=== PATIENT | female | born 1965 | race Hispanic/Latino ===

== ENCOUNTER 2023-05-13 23:16 | Emergency (ER) | payer OTHER ==
[~2023-05-13] VITALS: Ht 152.4 cm; Wt 74.4 kg
[2023-05-13 23:54] LABS: BASOPHILS # (AUTO) 0.06 K/uL (0.00-0.20); BASOPHILS % (AUTO) 0.6 % (0.0-5.0); EOSINOPHILS # (AUTO) 0.22 K/uL (0.00-0.70); EOSINOPHILS % (AUTO) 2.1 % (0.0-8.0); HEMATOCRIT 40.8 % (36-48); IMMATURE GRANULOCYTE ABSOLUTE 0.03 K/uL (0-1); LYMPHOCYTES # (AUTO) 3.1 K/uL (1.0-4.8); LYMPHOCYTES % (AUTO) 30.3 % (21.0-51.0); MEAN CORPUSCULAR HEMOGLOBIN 30.9 pg (27.0-33.0); MEAN CORPUSCULAR HGB CONC 33.8 g/dL (32.0-36.0); MEAN CORPUSCULAR VOLUME 91.3 fL (79-99); MONOCYTES # (AUTO) 0.8 K/uL (0.1-1.0); MONOCYTES % (AUTO) 7.3 % (3.0-13.0); NEUTROPHILS # (AUTO) 6.1 K/uL (1.8-7.7); NEUTROPHILS % (AUTO) 59.4 % (40.0-77.0); PLATELET COUNT (AUTO) 241 K/uL (130-400); RED BLOOD CELL COUNT(AUTO) 4.47 MIL/uL (4.00-5.50); RED CELL DISTRIBUTION WIDTH 12.5 % (11.0-15.5); WHITE BLOOD COUNT (AUTO) 10.3 K/uL (4.8-10.8)
[2023-05-14 00:09] LABS: CREATININE 0.6 mg/dL (0.5-1.0); POTASSIUM 4.3 mmol/L (3.5-5.1)
[2023-05-14 00:11] LABS: ALBUMIN 3.4 g/dL (3.5-5.0); BILIRUBIN,TOTAL 0.2 mg/dL (0.2-1.0); TOTAL PROTEIN, SERUM 7.3 g/dL (6.0-8.3)
[2023-05-14] MEDS ORDERED: FAMOTIDINE 20MG VIAL IV ONE (00:30)
[2023-05-14 00:36] VITALS: BP 132/74; PULSE 62; RESP 20; O2SAT 98
[2023-05-14] MEDS ORDERED: FAMO-136 PO (00:39)
[2023-05-14] MEDS: MAG/ALUM/SIMETH 30 ML UDCUP PO ONE (00:43)
[2023-05-14] MEDS: FAMOTIDINE 20MG TAB PO ONE (00:43)
[2023-05-14] MEDS: LIDOCAINE HCL 2% VISCOUS 15 ML UDCUP PO ONE (00:43)
[2023-05-14 00:46] LABS: APPEARANCE,URINE CLEAR (CLEAR); BILIRUBIN,URINE NEGATIVE (NEGATIVE); COLOR,URINE COLORLESS (YELLOW); GLUCOSE, URINE (UA) NEGATIVE (NEGATIVE); KETONES,URINE NEGATIVE (NEGATIVE); LEUKOCYTE ESTERASE ,URINE 75 Leu/uL (NEGATIVE); NITRATE,URINE NEGATIVE (NEGATIVE); OCCULT BLOOD,URINE NEGATIVE (NEGATIVE); PROTEIN,URINE NEGATIVE (NEGATIVE); UROBILINOGEN,URINE 0.2 mg/dL (0.2-1.0)
[2023-05-14 00:47] LABS: ADD UA MICROSCOPIC YES
[2023-05-14 00:48] LABS: BACTERIA,URINE FEW /HPF (None Seen); MUCUS,URINE RARE LPF (None Seen); SQUAMOUS EPITHELIAL CELL,UR FEW /HPF (0-2)
== END 2023-05-14 00:58 | disposition home or self-care (01) ==
LOC: EDH 23:16
DX: K21.9 Gastro-esophageal reflux disease without esophagitis (principal); I10 Essential (primary) hypertension; E03.9 Hypothyroidism, unspecified; E11.9 Type 2 diabetes mellitus without complications; E78.00 Pure hypercholesterolemia, unspecified; Z59.86 Financial insecurity; Z87.19 Personal history of other diseases of the digestive system; Z88.5 Allergy status to narcotic agent; Z79.899 Other long term (current) drug therapy
CPT/HCPCS: 36415; 80053; 81001; 83690; 85025; 87088

== ENCOUNTER 2024-09-02 00:17 | Emergency (ER) | payer SELFPAY ==
[~2024-09-02] VITALS: Ht 149.9 cm; Wt 71.7 kg
[~2024-09-02 00:17] MED LIST: FAMO-136 PO
--- NOTE | 2024-09-02 00:45 | NUR ---
PATIENT MOVED TO FAST TRACK AT THIS TIME./ELIZABETH
--- NOTE | 2024-09-02 00:58 | ERN ---
ED Note History of Present Illness Stated Complaint: EARACHES,SORE THROAT,M COUGH, CONGESTION X 2 WKS Chief Complaint: Multiple Complaints Time Seen by MD: 00:34 Dictation: This is a 59-year-old female who came in with her family members with complaints of 3 week history of sore throat cough and congestion. She stated that initially she took an antibiotic from her primary care she did not improve much. For heartburn she was given some medication which she also feels like it did not work she continues to have sore throat earache chest congestion and she also has a headache. All these are associated also with reflux. Temperature 97.7 pulse 67 respirations 20 blood pressure 172/82 with a pulse oximetry of 98% on room air Chronic medical problems include osteoarthritis, GERD, gastritis and hypercholesterolemia Allergies: Coded Allergies: morphine (Unverified Allergy, Unknown, 05/13/23) Home Meds Active Scripts Amoxicillin/Potassium Clav (Amox Tr-K Clv 875-125 mg Tab) 875 Mg-125 Mg Tablet, 1 EACH PO BID for 5 Days, #10 TAB 0 Refills Prov:ANGI HUSSEIN MD 09/02/24 Prednisone (Prednisone) 20 Mg Tablet, 1 TAB PO AD for 6 Days, #14 TAB 0 Refills TAKE 1 TAB BY MOUTH THREE TIMES PER DAY X3 DAYS, THEN TAKE 1 TAB BY MOUTH TWICE A DAY X2 DAYS, THEN TAKE 1 TAB BY MOUTH ONCE A DAY X1 DAY. Prov:ANGI HUSSEIN MD 09/02/24 Famotidine (Pepcid) 20 Mg Tablet, 20 MG PO BID for 14 Days, #28 TAB Prov:JERALD ESQUIVEL PAC 05/14/23 Past Medical History Past Medical History: Arthritis, High Cholesterol, Other Additional Past Medical Hx: HX OF ACID REFLUX, GASTRITIS Surgical History: Other, Surgical History Other: HEMORRHOID SX Family History: Negative Social History: Negative History: Not Applicable RN Note Reviewed/Agreed w/PFSH: Yes Review of System Dictation Constitutional: Negative for fever,chills, and weight loss Eyes: Negative for injury, pain,redness, and discharge ENT: Negative for injury,pain or swelling Cardiovascular: Negative for chest pain, palpitations, and edema Respiratory: Negative for shortness of breath, positive for cough, and congestion, positive for sputum Abdomen/GI: Negative for abdominal pain, nausea, vomiting, diarrhea, and constipation positive for heartburn and indigestion Back: Negative for injury and pain : Negative for injury, bleeding and discharge MS/Extremity: Negative for injury and deformity Skin: Negative for rash, and discoloration Neuro: Negative for headache, weakness, numbness, tingling, and seizure Psych: Negative for suicide ideation, homicidal ideation, and hallucinations Initial Vital Sign VS Vital Signs Date Time Temp Pulse Resp B/P (MAP) Pulse Ox O2 Delivery O2 Flow Rate FiO2 09/02/24 00:22 97.7 67 20 172/82 98 Room Air 09/02/24 02:14 0 21 Physical Exam Dictation General: awake, alert, NAD Head/Face: Normocephalic, atraumatic Eyes: PERRL, EOMI, vision at baseline ENT: oral cavity clear, TMs clear, no signs of infection Neck: Trachea midline, supple, no nuchal rigidity Cardiovascular: RRR, normal S1/S2, No MRGs, no JVD Respiratory: CTAB, no respiratory distress, No rales or wheezes Abdomen: Soft, non-tender, non-distended, normal bowel sounds, no guarding or rebound. Skin: Warm, dry, normal turgor, no rash MS/Extremity: Pulses equal, no cyanosis, neurovascular intact, FROM Neuro: COAx4, GCS 15, strength 5/5, CN 2-12 intact, normal cerebellar exam, normal gait, Psych: Normal behavior, mood, and affect normal Extremities-trace edema without any palpable cords, Homans sign is negative Results (Laboratory/Radiology) Laboratory/Radiology Laboratory Tests Test 09/02/24 01:35 Influenza Type A Antigen Negative For Type A Influenza Type B Antigen Negative For Type B SARS-CoV-2 Antigen (Rapid) PRESUMPTIVE NEGATIVE Group A Streptococcus Rapid negative (NEGATIVE) Labs Reviewed?: Yes ED Course ED Course Orders Procedure Category Date Status Time Influenza Type A & B, LAB 09/02/24 Complete Rapid 00:55 Rapid (Group A Strep) LAB 09/02/24 Complete 00:55 Covid19 (Sars Antigen LAB 09/02/24 Complete Rapid) 00:55 Methylprednisolone PHA 09/02/24 Complete Succ 125mg (Solu-Medr 01:00 Ketorolac PHA 09/02/24 Complete Tromethamine 30mg/Ml 01:00 Chest 1vw RAD 09/02/24 Resulted 03:04 Lidocaine Hcl 2% PHA 09/02/24 Complete Viscous (Lidocaine Hcl 03:30 Mag/Alum/Simeth 30ml PHA 09/02/24 Complete (Maalox Plus 30ml) 03:30 Dicyclomine Hcl PHA 09/02/24 Complete (Bentyl 10mg/5ml 03:30 Albuterol 0.083% PHA 09/02/24 Complete 2.5mg/3ml (Proventil 03:30 Current Medications Medications (Trade) Dose Ordered Sig/Praful Route PRN Reason Start Time Stop Time Status Last Admin Dose Admin Al Hydroxide/Mg Hydroxide (MAALox PLUS 30ML) 30 ml ONCE ONCE PO 09/02/24 03:30 09/02/24 03:31 DC 09/02/24 03:17 Albuterol Sulfate (Proventil 0.083% 2.5mg/3ml) 2.5MG ONCE ONCE IH 09/02/24 03:30 09/02/24 03:31 DC 09/02/24 03:40 Dicyclomine HCl (Bentyl 10mg/5ml Syrup) 10 mg ONCE ONCE PO 09/02/24 03:30 09/02/24 03:31 DC 09/02/24 03:17 Ketorolac Tromethamine (toRADol) 30 mg ONCE ONCE IM 09/02/24 01:00 09/02/24 01:01 DC 09/02/24 01:36 Lidocaine HCl (Lidocaine HCl 2% Viscous) 10 ml ONCE ONCE PO 09/02/24 03:30 09/02/24 03:31 DC 09/02/24 03:18 Methylprednisolone Sodium Succinate (Solu-medROL 125MG) 80 mg ONCE ONCE IM 09/02/24 01:00 09/02/24 01:01 DC 09/02/24 01:36 Vital Signs Date Time Temp Pulse Resp B/P (MAP) Pulse Ox O2 Delivery O2 Flow Rate FiO2 09/02/24 03:41 59 17 09/02/24 02:14 98.2 58 17 105/59 98 Room Air* 0 21 09/02/24 00:22 97.7 67 20 172/82 98 Room Air We will perform diagnostic labs, imaging and administer medications according to the patient's complaint. Once the results are available, will review and personally interpreted the labs to rule out any acute life-threatening emergency the trach require immediate intervention and treatment. I will then re-evaluate the patient after treatment and diagnostic exams have return to determine whether the patient requires any further testing, can safely be discharged home or need further admission to hospital for additional treatment and evaluation Reviewed labs-influenza COVID and strep were all negative. Chest x-ray requested to evaluate for persistent symptoms. 4:00 a.m. chest x-ray was negative for any acute infiltrate. And patient responded to symptomatic treatment and nebulizer treatments and feels much improved . I updated her and son on all the lab work possibilities and plan of care and answered all their questions Medical Decision Making MDM Differential diagnosis: Chronic postnasal drip, sinusitis, Acute bronchitis, pneumonia, allergic rhinitis, streptococcal pharyngitis, post viral bronchiolitis with reactive airways Rationale: Tests considered and ordered secondary to shared decision making include: Previous outside records reviewed: Old ER visits. Risk of complication and/or morbidity or mortality of patient management: None Medications-Per medication reconciliation Need for hospitalization: Patient does not meet criteria for hospitalization. Need for emergency major/minor surgery: No There are no social concerns with this patient. Prescription drug management Prescriptions will include symptomatic care Patient's prior external medical records from other ER visits were reviewed by me as indicated. Prior testing and results from previous visits were reviewed. Prior tests were taken into account with medical decision making and resource utilization, independent historian/historians were used to obtain complete medical history. I independently interpreted the test that were performed, results were reviewed by me and considered findings on radiology if ordered. Medical management and examination interpretation discussions were had by me with other qualified healthcare professionals as indicated for the patient's care. Problem List Problem List: (1) Bronchitis (2) Persistent cough (3) GERD (gastroesophageal reflux disease) DX & DISP Disposition: Discharge Departure Impression: Primary Impression: Bronchitis Additional Impressions: Persistent cough, GERD (gastroesophageal reflux disease) Condition: Stable Scripts Albuterol Sulfate (Ventolin Hfa/Proventil Hfa/Proair Hfa) 90 Mcg Puff 2 PUFF IH Q4H for WHEEZING, #1 INHALER 0 Refills Prov: ANGI HUSSEIN MD 09/02/24 Amoxicillin/Potassium Clav (Amox Tr-K Clv 875-125 mg Tab) 875 Mg-125 Mg Tablet 1 EACH PO BID for 5 Days, #10 TAB 0 Refills Prov: ANGI HUSSEIN MD 09/02/24 Prednisone (Prednisone) 20 Mg Tablet 1 TAB PO AD for 6 Days, #14 TAB 0 Refills TAKE 1 TAB BY MOUTH THREE TIMES PER DAY X3 DAYS, THEN TAKE 1 TAB BY MOUTH TWICE A DAY X2 DAYS, THEN TAKE 1 TAB BY MOUTH ONCE A DAY X1 DAY. Prov: ANGI HUSSEIN MD 09/02/24 Additional Instructions: Patient and the caregiver have been informed of all the diagnostic tests and the imaging conducted during the today's visit to the emergency room and has verbalized understanding of the results I have personally reviewed and interpreted all diagnostic exams performed here in the ER today as well as the vital signs documented by the nursing staff. The patient is now being discharged to home and should follow up with the primary care physician or the specialist as directed by the ER staff. Follow-up with primary care provider in 1 to 2 days. Take medications as directed here in the emergency room. Okay to continue home medications unless otherwise discussed during your visit in the emergency room today. Return to your nearest emergency room if symptoms worsen or if there is no improvement. Call 911 if you need immediate assistance. Take Tylenol or Motrin [id number] as needed and if no contraindications are present. Increase oral hydration. A wound culture or urine culture was ordered here in the emergency room department please follow-up with primary care provider and advise them to get repeat ports from our facility. If you had any Jony wrap/splints that were applied here, please do not remove them until you see your primary care or specialty. Referrals: BHARATH DALTON PA-C (PCP) ANGI HUSSEIN MD Sep 02, 2024 00:57
[2024-09-02 02:01] LABS: RAPID GROUP A STREP negative (NEGATIVE)
[2024-09-02 02:05] LABS: COVID19 (SARS ANTIGEN RAPID) PRESUMPTIVE NEGATIVE (NEGATIVE)
[2024-09-02 02:06] LABS: INFLUENZA TYPE A Negative For Type A (NEGATIVE); INFLUENZA TYPE B Negative For Type B (NEGATIVE)
[2024-09-02] MEDS: DICYCLOMINE HCL 10 MG/5 ML ML PO ONE (03:17)
[2024-09-02] MEDS: MAG/ALUM/SIMETH 30 ML UDCUP PO ONE (03:17)
[2024-09-02] MEDS: LIDOCAINE HCL 2% VISCOUS 15 ML UDCUP PO ONE (03:18)
[2024-09-02] MEDS ORDERED: PRED20TA3 PO (03:40)
[2024-09-02] MEDS: ALBUTEROL 0.083% 2.5 MG/3 ML INH IH ONE (03:40)
[2024-09-02] MEDS ORDERED: AMOX1TAB16 PO (03:40)
[2024-09-02 03:41] VITALS: PULSE 59; RESP 17
--- NOTE | 2024-09-02 03:43 | HMCIMG ---
EXAM: CR Chest, 1 view CLINICAL HISTORY: Cough and congestion for 3 weeks. Evaluate for pneumonia.. COMPARISON: None provided. FINDINGS: The lungs show no infiltrates or other acute findings. No pleural effusion or pneumothorax. The cardiomediastinal silhouette is within normal limits. No acute osseous abnormality. IMPRESSION: No acute cardiopulmonary process is evident. /[place]
[2024-09-02] MEDS ORDERED: ALBUHFA IH (04:03)
[2024-09-02 04:05] VITALS: BP 117/63; PULSE 62; RESP 17; TEMP 98.4; O2SAT 98
== END 2024-09-02 04:17 | disposition home or self-care (01) ==
LOC: EDH 00:17
DX: J40 Bronchitis, not specified as acute or chronic (principal); R05.9 Cough, unspecified; K21.9 Gastro-esophageal reflux disease without esophagitis; E78.00 Pure hypercholesterolemia, unspecified; M19.90 Unspecified osteoarthritis, unspecified site; Z20.822 Contact with and (suspected) exposure to COVID-19; Z88.5 Allergy status to narcotic agent
CPT/HCPCS: 99284; 71045; 87426; 87880; 87804 ×2; 96372 ×2; 94640; J1885; J2919

== ENCOUNTER 2024-09-15 12:29 | Emergency (ER) | payer SELFPAY ==
[~2024-09-15] VITALS: Ht 167.6 cm; Wt 71.2 kg
[~2024-09-15 12:29] MED LIST changes: +ALBUHFA IH; +AMOX1TAB16 PO; +PRED20TA3 PO
--- NOTE | 2024-09-15 12:42 | EKG ---
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
--- NOTE | 2024-09-15 12:42 | ERN ---
General Chief Complaint: Cough Stated Complaint: COUGH Time Seen by MD: 12:32 Source: patient History of Present Illness Initial Comments Patient is a 59-year-old female coming in complaining of a cough. Patient states that she does has a history of reflux in his pending a visit with a GI doctor. States that two days ago patient had reflux which was getting worse. Long with this patient states that she has been having diarrhea and nasal congestion as well. Allergies: Coded Allergies: morphine (Unverified Allergy, Unknown, 05/13/23) Home Meds Active Scripts Albuterol Sulfate (Ventolin Hfa/Proventil Hfa/Proair Hfa) 90 Mcg Puff, 2 PUFF IH Q4H for WHEEZING, #1 INHALER 0 Refills Prov:ANGI HUSSEIN MD 09/02/24 Amoxicillin/Potassium Clav (Amox Tr-K Clv 875-125 mg Tab) 875 Mg-125 Mg Tablet, 1 EACH PO BID for 5 Days, #10 TAB 0 Refills Prov:ANGI HUSSEIN MD 09/02/24 Prednisone (Prednisone) 20 Mg Tablet, 1 TAB PO AD for 6 Days, #14 TAB 0 Refills TAKE 1 TAB BY MOUTH THREE TIMES PER DAY X3 DAYS, THEN TAKE 1 TAB BY MOUTH TWICE A DAY X2 DAYS, THEN TAKE 1 TAB BY MOUTH ONCE A DAY X1 DAY. Prov:ANGI HUSSEIN MD 09/02/24 Famotidine (Pepcid) 20 Mg Tablet, 20 MG PO BID for 14 Days, #28 TAB Prov:JERALD ESQUIVEL 05/14/23 Past Medical History Past Medical History: Arthritis, High Cholesterol, Other Medical History Other: HX OF ACID REFLUX, GASTRITIS, THYROID Past Surgical History: Other, Surgical History Other: HEMORRHOID SX Family History Family History: Negative Social History Social History: Negative Female( History) History: Not Applicable ROS Dictation CONSTITUTIONAL: No chills, no fever, no weakness, no diaphoresis, no malaise. HEAD/FACE: No signs of trauma. EENT: No eye pain, no blurred vision, no tearing, no double vision, no ear pain, no ear discharge, no nose pain, no nasal congestion, no throat pain, no throat swelling, no mouth pain. RESPIRATORY: cough, no orthopnea, no SOB, no stridor, no wheezing. CARDIOVASCULAR: No chest pain, no edema, no palpitations, no syncope. GASTROINTESTINAL/ABDOMINAL: No abdominal pain, no constipation, no diarrhea, no nausea, no vomiting. GENITOURINARY: No abnormal discharge, no dysuria, no frequent urination, no hematuria. No complaints of pain in the genitals. MUSCULOSKELETAL: No back pain, no gout, no joint pain, no joint swelling, no muscle pain, no muscle stiffness, no neck pain. INTEGUMENTARY: No change in color, no change in hair/nails, no dryness, no lesion, no lumps, no rash. NEUROLOGICAL/PSYCH: No anxiety, not depressed, no emotional problem, no h eadache, no numbness, no pre-existing deficit, no history of seizures, no tremors, no weakness. HEMATOLOGIC/LYMPHATIC: Not anemic, no history of blood clots, no apparent bleeding, no bruising, glands not swollen. All Systems Negative, Except as Noted. Physical Exam Physical Exam Dictation VITAL SIGNS: Reviewed. GENERAL APPEARANCE: Alert, oriented x3, no acute distress, obese. HEAD AND FACE: Non-traumatic. EYES: PERRL, pink conjunctivas, eyelid no trauma, anterior chamber clear. EARS: Pinnas intact and no signs of trauma or erythema. Ear canals clear and no discharge. TMs no erythema. NOSE: No discharge, no bleeding. OROPHARYNX: Mouth normal, teeth no caries, tongue pink. Pharynx clear, no erythema. Tonsils no exudates, no abscesses noted. Mucous membrane moist. NECK: Supple, non-tender, no thyromegaly, no masses, no JVD, no bruits. BREAST: Deferred. CHEST: No tenderness, no crepitus, no paradoxical movement, no retractions. LUNGS: Clear, well-ventilated, symmetric, no rales, no wheezing, no rhonchi, no stridor, good breath sounds bilaterally. HEART: Regular rate, regular rhythm, no murmur, no gallops. VASCULAR: No peripheral edema. ABDOMEN: Soft, positive bowel sounds, nondistended, no guarding, nontender, no rebound, no masses no hepatomegaly, no splenomegaly, no Pettit's sign, no hernias. RECTAL: Deferred. GENITAL: Deferred. NEUROLOGICAL: Normal speech, gross motor function intact, gross sensory function intact. MUSCULOSKELETAL: Neck nontender, full range of motion, back nontender, full range of motion. EXTREMITIES: Nontender, full range of motion. SKIN: Color pink, dry, no turgor, no rash, no lacerations, no abrasions, no contusions. LYMPHATICS: Deferred. Results Laboratory and Microbiology Lab and Micro Result Laboratory Tests Test 09/15/24 12:45 Influenza Type A Antigen Negative For Type A Influenza Type B Antigen Negative For Type B SARS-CoV-2, RNA, NAAT POSITIVE SARS CoV-2 Group A Streptococcus Rapid negative (NEGATIVE) Labs Reviewed?: Yes EKG/XRAY/US/CT/MRI EKG Comment 09/15/2024 time 12:37 p.m. Ventricular rate 65 Sinus rhythm [place] [address] wave elevation or depression MDM MDM: Differential diagnosis: COVID, flu, Rationale: Tests considered and ordered secondary to shared decision making include: Previous outside records reviewed: Old ER visits. Risk of complication and/or morbidity or mortality of patient management: None Medications-Per medication reconciliation Need for hospitalization: Patient does not meet criteria for hospitalization. Need for emergency major/minor surgery: No Patient is a 59-year-old lady coming in complaining of cough and congestion. Laboratory workup positive for COVID-19. Patient will be discharged in stable condition patient states he will hold off on any medication for COVID-19. ED Course Orders Procedure Category Date Status Time Covid Rna Naat LAB 09/15/24 Complete 12:35 Influenza Type A & B, LAB 09/15/24 Complete Rapid 12:35 Rapid (Group A Strep) LAB 09/15/24 Complete 12:35 12 Lead Ekg Tracing- EKG 09/15/24 Complete Technical 12:35 Lidocaine Hcl 2% PHA 09/15/24 Complete Viscous (Lidocaine Hcl 13:00 Mag/Alum/Simeth 30ml PHA 09/15/24 Complete (Maalox Plus 30ml) 13:00 Chest 1vw RAD 09/15/24 Logged 12:35 Current Medications Medications (Trade) Dose Ordered Sig/Praful Route PRN Reason Start Time Stop Time Status Last Admin Dose Admin Al Hydroxide/Mg Hydroxide (MAALox PLUS 30ML) 30 ml ONCE ONCE PO 09/15/24 13:00 09/15/24 13:01 DC 09/15/24 13:24 Lidocaine HCl (Lidocaine HCl 2% Viscous) 10 ml ONCE ONCE PO 09/15/24 13:00 09/15/24 13:01 DC 09/15/24 13:24 Vital Signs Date Time Temp Pulse Resp B/P (MAP) Pulse Ox O2 Delivery O2 Flow Rate FiO2 09/15/24 13:27 98.1 76 15 175/75 98 Room Air* 0 21 09/15/24 12:33 98.1 75 16 176/77 98 Room Air 0 DX & DISP Disposition: Discharge Departure Impression: Primary Impression: COVID-19 Condition: Stable Scripts Loratadine (Loratadine) 10 Mg Tablet 1 TAB PO DAILY for allergy symptoms for 30 Days, #30 TAB 0 Refills Prov: SEJAL TELLES MD 09/15/24 Fluticasone Propionate (Flonase Nasal [place]) 50 Mcg/Actuation [place] 2 SPRAY NS DAILY, #16 GM 0 Refills Prov: SEJAL TELLES MD 09/15/24 Additional Instructions: FOLLOW-UP WITH PRIMARY CARE PROVIDER IN 1 TO 2 DAYS. TAKE MEDICATIONS DIRECTED HERE IN THE EMERGENCY ROOM. OKAY TO CONTINUE HOME MEDICATIONS UNLESS OTHERWISE DISCUSSED DURING YOUR VISIT IN THE EMERGENCY ROOM TODAY. RETURN TO YOUR NEAREST EMERGENCY ROOM IF SYMPTOMS WORSEN OR IF THERE IS NO IMPROVEMENT. CALL 911 IF YOU NEED IMMEDIATE ASSISTANCE. TAKE TYLENOL [id number] NEEDED AND IF NO CONTRAINDICATIONS ARE PRESENT. INCREASE ORAL HYDRATION. A WOUND CULTURE OR URINE CULTURE WAS ORDERED HERE IN THE EMERGENCY ROOM DEPARTMENT PLEASE FOLLOW-UP WITH PRIMARY CARE PROVIDER AND ADVISE THEM TO GET REPORTS FROM OUR FACILITY. IF YOU HAD ANY MIRACLE WRAP/SPLINTS THAT WERE APPLIED HERE, PLEASE DO NOT REMOVE THEM UNTIL YOU SEE YOUR PRIMARY CARE OR SPECIALTY. Referrals: Referrals: ALEX CAMPBELL (PCP) Time of Disposition: 13:45 SEJAL TELLES MD Sep 15, 2024 12:42
[2024-09-15 13:08] LABS: RAPID GROUP A STREP negative (NEGATIVE)
[2024-09-15 13:18] LABS: INFLUENZA TYPE A Negative For Type A (NEGATIVE); INFLUENZA TYPE B Negative For Type B (NEGATIVE)
[2024-09-15 13:21] LABS: SARS-CoV-2, RNA, NAAT POSITIVE SARS CoV-2 (NEGATIVE)
[2024-09-15] MEDS: MAG/ALUM/SIMETH 30 ML UDCUP PO ONE (13:24)
[2024-09-15] MEDS: LIDOCAINE HCL 2% VISCOUS 15 ML UDCUP PO ONE (13:24)
[2024-09-15 13:27] VITALS: BP 175/75; PULSE 76; RESP 15; TEMP 98; O2SAT 98
[2024-09-15] MEDS ORDERED: LORA10TA7 PO (13:46)
[2024-09-15] MEDS ORDERED: FLUT16H NS (13:46)
--- NOTE | 2024-09-15 14:34 | HMCIMG ---
EXAM: XR Chest, 1 View. CLINICAL HISTORY: 59-year-old female cough. COMPARISON: 09/02/2024 03:08 FINDINGS: LUNGS: The lungs are clear. No consolidation. PLEURAL SPACES: No pleural effusion or pneumothorax. HEART: Borderline cardiomegaly. BONES: No acute osseous abnormality. IMPRESSION: 1. No acute findings. 2. Borderline cardiomegaly, similar to prior XR Chest dated 09/02/2024 03:08. /[place]
== END 2024-09-15 13:50 | disposition home or self-care (01) ==
LOC: EDH 12:29
DX: U07.1 COVID-19 (principal); R19.7 Diarrhea, unspecified; E78.00 Pure hypercholesterolemia, unspecified; Z87.19 Personal history of other diseases of the digestive system; Z88.5 Allergy status to narcotic agent; Z79.899 Other long term (current) drug therapy
CPT/HCPCS: 99285; 71045; 87635; 87880; 87804 ×2; 96372; 93005; J1100